=== PATIENT | male | born 1980 | race Caucasian/White ===

== ENCOUNTER 2024-07-24 08:19 | Outpatient (CLI) | payer OTHER | END 2024-07-24 23:59 | disposition home or self-care (01) | LOC: MRI02 08:19 | PROVIDERS: ATTEND Physician Assistant Medical | DX: S63.502A Unspecified sprain of left wrist, initial encounter (principal); X58.XXXA Exposure to other specified factors, initial encounter; Y93.89 Activity, other specified; Y92.89 Other specified places as the place of occurrence of the external cause; Y99.8 Other external cause status; R60.9 Edema, unspecified | CPT/HCPCS: 73218 ==